=== PATIENT | male | born 1980 | race Caucasian/White ===

== ENCOUNTER 2023-12-11 19:19 | Emergency (ER) | payer OTHER, SELFPAY ==
--- NOTE | 2023-12-11 19:27 | ED_ITS ---
HPI - General Adult General Chief complaint: Dental/Oral Stated complaint: toothache Time Seen by Provider: 12/11/23 22:46 Source: patient Limitations: no limitations History of Present Illness HPI narrative: 43-year-old male presents complaining of right upper dental pain. Patient states he has had problems with his teeth in this area in the past. Patient states today while he was eating a taco, when he bit down he felt as though so mething may have gone inside or irritated the tooth. He has had pain since that time. He denies any fevers chills nausea vomiting. Denies any loose or chipped dentition. No trauma. He has been eating drinking normally prior to this. He has not tried any medication. Patient is otherwise feeling well. Related Data Previous Rx's Medication Instructions Recorded naproxen 500 mg tablet 500 mg PO BID PRN pain #20 tabs 12/11/23 penicillin V potassium 500 mg 500 mg PO QID 7 days #28 tabs 12/11/23 tablet Allergies Allergy/AdvReac Type Severity Reaction Status Date / Time No Known Allergies Allergy Verified 12/11/23 19:28 Review of Systems ENT: Reports mouth pain, Denies sore throat and Denies throat swelling Comments: Positive dental pain Allergic/Immunologic: Allergic/Immunologic: Denies throat swelling PMFSH Social History Social History Advance Directives: No Advance Directives Information Provided: No Physical Exam ED Vital Signs: Vital Signs - 24 hr 12/11/23 19:28 Temperature 97.9 F Pulse Rate 88 Respiratory Rate 18 Blood Pressure 179/94 H Pulse Oximetry 95 Oxygen Delivery Method Room Air BMI result Body Mass Index 37.1 Const General: cooperative HENMT Other: oropharynx is moist. Teeth are in fair repair. teeth numbers 1, 2 and 3 are intact. tooth 3. Has a obvious hole without any discharge. There is no periapical erythema or edema surrounding these teeth. No evidence of drainable abscess. Resp Auscultation: clear to auscultation bilaterally Cardio Rate: regular rate Rhythm: regular rhythm Course Course Course Narrative: Patient is a 43-year-old male who presents emergency department for evaluation of right upper dental pain. Reports chronic for past few years, has not seen a dentist, reports tonight the pain has become more severe and intolerable while eating a taco. Denies any recent fracture to the tooth. Has known dental caries. Denies fevers, chills, neck pain, CP, shortness of breath, ear pain. concerning for pulpitis. Requesting pain management. dental: #3 decay Medications Administered Discontinued Medications Generic Name Dose Route Start Last Admin Trade Name Duncan PRN Reason Stop Dose Admin Acetaminophen 975 mg 12/11/23 20:07 12/11/23 22:55 Acetaminophen 325 Mg Tablet PO 12/11/23 20:08 975 mg ONCE ONE Administration Ibuprofen 600 mg 12/11/23 20:07 12/11/23 22:56 Ibuprofen 600 Mg Tablet PO 12/11/23 20:08 600 mg ONCE ONE Administration Medical Decision Making Medical Decision Making MDM Narrative: 43-year-old male with acute onset of dental, patient's pain. Suspect severe dental bernadine, nerve irritation. Could have early dental infection as well. There is no evidence of drainable abscess. Antibiotics and NSAIDs. Patient states that he will follow up with a previously seen dentist that is open on the weekend. Reviewed all discharge instructions. No further questions at this time. Differential Diagnosis Differential Diagnoses: The differential diagnosis associated with the presentation includes Dental caries Dental abscess Facial pain Gingivitis Discharge Plan Discharge Clinical Impression: Toothache, Dental caries Patient Disposition: Home, Self-Care Instructions: Toothache (ED) Additional Instructions: Pen-VK as directed. Finish all antibiotics. Naproxen as directed. Take with food. Follow-up with your dentist. Follow-up with your primary care provider. Call this week to schedule a follow- up appointment. Return to the emergency department if you have any worsening of symptoms, or any concerns. Get well soon! Prescriptions: New naproxen 500 mg tablet 500 mg PO BID PRN (Reason: pain) Qty: 20 0RF penicillin V potassium 500 mg tablet 500 mg PO QID 7 Days Qty: 28 0RF Stand Alone Forms: Work/School Release Interventions: ED Discharge Assessment Last Done: 12/11/23 23:13 Discharge Date/Time: 12/11/23 23:14
[2023-12-11 19:28] VITALS: BP 179/94; PULSE 88; RESP 18; TEMP 36.6; O2SAT 95; BMI 37.1
[2023-12-11] MEDS: Acetaminophen 325 MG TABLET 975 MG PO (22:55)
[2023-12-11] MEDS: Ibuprofen 600 MG TABLET PO (22:56)
== END 2023-12-11 23:14 | disposition home or self-care (01) ==
PROVIDERS: Emergency Provider Internal Medicine
DX: K08.89 Other specified disorders of teeth and supporting structures (principal); K02.9 Dental caries, unspecified
CPT/HCPCS: 99283